=== PATIENT | male | born 1955 | race Caucasian/White ===

== ENCOUNTER 2023-03-18 07:38 | Day surgery (SDC) | payer MEDICARE, BC ==
[~2023-03-18] VITALS: Ht 167.6 cm; Wt 81.7 kg
[~2023-03-18 07:38] MED LIST: AMLODIPINE BESYL5 MG PO; Bisoprolol Fumar5 MG; FINA5 PO; Hydroxychloroq200 MG PO; IMURAN50 MG PO; LOSARTAN-HCTZ1 EAC5 PO; TAMS.4ER PO
--- NOTE | 2023-03-18 08:22 | NUR ---
03/18/23 0822 Jenna Duke AT 0816 PLEDGET AT 0817
[2023-03-18 09:20] VITALS: BP 158/82
--- NOTE | 2023-03-18 09:46 | NUR ---
03/18/23 0946 Christiano Leach IV REMOVED INTACT. SITE WNL.
== END 2023-03-18 09:41 | disposition home or self-care (01) ==
LOC: ORSCSDS 07:38
PROVIDERS: Ophthalmology
PROC: 08DK3ZZ Extraction of Left Lens, Percutaneous Approach (ICD-10-PCS; principal; 2023-03-18 09:00)
DX: H25.12 Age-related nuclear cataract, left eye (principal); Z96.1 Presence of intraocular lens; I10 Essential (primary) hypertension; F17.210 Nicotine dependence, cigarettes, uncomplicated; Z79.899 Other long term (current) drug therapy
CPT/HCPCS: J2001; J2250; J3010; J3301; J7040; V2632